=== PATIENT | male | born 1985 ===

== ENCOUNTER → 2020-07-04 | Outpatient (REF) | payer OTHER ==
[2020-07-04 14:09] LABS: SEMEN APPEARANCE OPAQUE (OPAQUE); SEMEN VISCOSITY LIQUID (LIQUID); SEMEN pH 8.5 (7.0-8.0); SPERM CONCENTRATION 32.1 M/ml (>=15.0); WBC CONCENTRATION <=1 M/ml (<=1 M/ml)
== END ==
LOC: M LAB REF 13:10
PROVIDERS: ATTEND Physician Assistant
DX: Z31.41 Encounter for fertility testing (principal)